=== PATIENT | female | born 1960 | race Caucasian/White ===

== ENCOUNTER → 2020-06-18 14:07 | Outpatient (REF) | payer OTHER, SELFPAY ==
--- NOTE | 2020-06-18 14:13 | CA_ITS ---
Transthoracic Echocardiogram Patient (Last, First, Middle): Uyen Art, Gender: Female Date of : 1960 Age: 59 Procedure Date: 06/18/2020 Procedure Type: Transthoracic Echocardiogram Location: OP Height: 160.02 cm Weight: 52.16 kg BSA: 1.53 m2 Heart Rate: bpm BP: 127 / 85 mmHg Signal Intelligence Analyst: RONA Referring MD: Tatyana Christie TOLL GATE TENDER-Paola Symptoms: R03.0 Elevated blood pressure without diagnosis of hypertension, 134.1 MVP Study Quality: Good ECG Rhythm: Sinus Conclusions: - The left ventricular systolic function is normal. The visually estimated ejection fraction is between 55-60%. - The mitral valve appears myxomatous. There is moderate anterior mitral leaflet prolapse. There is mild mitral valve regurgitation. Findings Left Ventricle Normal left ventricular cavity size. There is mildly increased left ventricular wall thickness. The left ventricular systolic function is normal. The visually estimated ejection fraction is between 55-60%. There is no evidence of regional wall motion abnormalities. Diastolic function is normal for age. Right Ventricle Normal right ventricular cavity size and systolic function. Atria The left atrium is normal in size. The right atrium is normal in size. Aortic Valve There is a normal trileaflet aortic valve. There is no aortic valve stenosis. There is trace (trivial) aortic valve regurgitation. Mitral Valve The mitral valve appears myxomatous. There is moderate anterior mitral leaflet prolapse. There is mild mitral valve regurgitation. There is no mitral valve stenosis. Pulmonic Valve The pulmonic valve was not well visualized. Tricuspid Valve Normal tricuspid valve structure. There is trace tricuspid valve regurgitation. The pulmonary artery systolic pressure is normal. Great Vessels The aortic annulus, sinuses of valsalva, and asc aorta are normal in size. Venous The inferior vena cava is normal in size and collapses greater than 50% with inspiration. Pericardium/Pleural There is no evidence of pericardial effusion. Prior Study Comparison No significant change compared to prior study dated: 07/12/2018. Measurements 2D Linear Measurements IVSd: 1.16 0.6-0.9/0.6-1.0 cm LVIDd: 4.30 3.9-5.3/4.2-5.9 cm LVIDd Index: 2.81 2.4-3.2/2.2-3.1 cm/m2 LVIDs: 2.24 2.0-3.6 cm LVPWd: 0.94 0.7-1.1 cm Ao Root: 3.20 2.1-3.5 cm LA Diam: 2.30 2.7-3.8/3.0-4.0 cm LAIDs Index: 1.50 1.5-2.3 cm/m2 LV Mass: 189.56 67-162/88-224 g LV Mass Index: 123.89 43-95/49-115 g/m2 LVOT Diam: 2.00 3.0+(-)1.3 cm 2D Systolic Function EF 4C: 75.80 >55% Mitral Valve MV Pk E: 0.57 MV PK A: 0.58 MV Decel Time: 269.00 E/A: 1.00 E'Lateral: 5.22 E'Medial: 6.96 E/E' Med: 8.20 E/E' Lat: 10.90 PHT: 79.00 MVA PHT: 2.78 Decel [place]: 2.11 Aortic Valve AoV Pk Kory: 1.28 AoV Pk Grad: 7.00 LVOT LVOT Pk Kory: 0.90 LVOT Mn Kory: 0.58 LVOT VTI: 0.16 LVOT Pk Grad: 3.00 LVOT Mn Grad: 2.00 LVOT Diam: 2.00 LVOT Area: 3.14 Diastolic Function MV Pk E: 0.57 MV Pk A: 0.58 E/A: 1.00 E'Medial: 6.96 E/E' Med: 8.20 E' Laterial: 5.22 E/E' Lat: 10.90 Tricuspid Valve TR Pk Kory: 1.95 TR Pk Grad: 15.00 RA Press: 3.00 RVSP: 18.00 Great Vessels Aorta Ao Root-2D: 3.20 2.0-3.7 cm Ao Asc: 3.30 2.1-3.4 cm Updated in Other Vendor System with Status of Final Jayson Hicks MD electronically signed on 06/21/2020 9:21:55 AM with status of Final
== END ==
LOC: HO.CARD 14:07
PROVIDERS: PCP Internal Medicine; Visit Provider Nurse Practitioner Family
DX: R03.0 Elevated blood-pressure reading, without diagnosis of hypertension (principal); E05.90 Thyrotoxicosis, unspecified without thyrotoxic crisis or storm; I34.1 Nonrheumatic mitral (valve) prolapse
CPT/HCPCS: 93306

== ENCOUNTER → 2020-06-24 11:25 | Outpatient (BNVA) | payer OTHER, SELFPAY | PROVIDERS: PCP Internal Medicine; Referring Provider Internal Medicine; Visit Provider Nurse Practitioner Family | DX: I10 Essential (primary) hypertension (principal); I34.1 Nonrheumatic mitral (valve) prolapse; R00.2 Palpitations; Z79.899 Other long term (current) drug therapy | CPT/HCPCS: 99214 ==

== ENCOUNTER → 2021-01-12 12:56 | Outpatient (BNVA) | payer OTHER, SELFPAY | PROVIDERS: PCP Internal Medicine; Referring Provider Internal Medicine; Visit Provider Internal Medicine Cardiovascular Disease | DX: I34.1 Nonrheumatic mitral (valve) prolapse (principal); I47.1 Supraventricular tachycardia; I10 Essential (primary) hypertension; Z79.899 Other long term (current) drug therapy | CPT/HCPCS: 99212 ==

== ENCOUNTER → 2023-01-05 13:32 | Outpatient (BNVA) | payer OTHER, SELFPAY | PROVIDERS: PCP Internal Medicine; Referring Provider Internal Medicine; Visit Provider Internal Medicine Cardiovascular Disease | DX: I34.1 Nonrheumatic mitral (valve) prolapse (principal); I47.1 Supraventricular tachycardia; I10 Essential (primary) hypertension | CPT/HCPCS: 93005; 99212 ==

== ENCOUNTER 2025-01-10 13:21 | Outpatient (REF) | payer OTHER, SELFPAY ==
--- OUTSIDE RECORDS SUMMARY | 2025-01-10 14:48 | XMS_ITS | Encounter Summary ---
Author Organization [facility] Address [address] [place] [phone] Care Team Providers Care Site Physician Name Role Phone Nubia Flores MD Primary Care Provider Reason for Visit * Reason Onset Date Comments APPOINTMENT 01/09/2025 Encounter Details Date Type Department Care Team (Late st Contact Info) Description 01/09/2025 Telephone Gastroenterology - [address] [place] [phone] Darien Jacobsen MD [address] [facility] [address] [address] APPOINTMENT Social History Tobacco Use Types Packs/Day [...] - [address] [place] [phone] Bridgett Traore MD [address] [place] [address] [place] [address] [place] [address] documented as of this encounter Visit Diagnoses Not on filedocumented in this encounter Care Teams Site Physician Relationship Specialty Start Date End Date Nubia Flores MD 75 [facility] 1 [place] [address] PCP - General Internal Medicine 01/09/25 documented as of this encounter
--- OUTSIDE RECORDS SUMMARY | 2025-01-10 14:48 | XMS_ITS | Clinical Summary ---
Author Organization [facility] 299 [facility] Address [address] [place] [address] Phone Care Team Providers Care Avionics Systems Repairer Name Role Phone Nubia Flores MD Primary Care Provider Encounters Date Type Department Care Team Description 01/09/2025 Telephone Gastroenterology - [address] [phone] Darien Jacobsen MD APPOINTMENT from Last 3 Months Surgical History Surgery Date Site/Laterality Comments WISDOM TOOTH EXTRACTION PROCEDURE: HISTORICAL WISDOM TEETH EXTRACTION Family History Medical History Relation Name Comments Hypertension Mother Thyroid disease Mother Relation Name Status Comments Father Alive Maternal Grandfather asthma, [place] Maternal Grandmother Mother Alive Paternal Grandfather Paternal Grandmother [place] Sister 1 Alive Sister 2 Alive Sister [...] 12:40 PM EDT Consult Gastroenterology - [address] [phone] Bridgett Traore MD [address] [place] [address] [phone] Health Maintenance Due Date Last Done Comments [...] patient's age to complete this topic Insurance [facility] PUBLIC PLANS Care Teams Avionics Systems Repairer Relationship Specialty Start Date End Date Nubia Flores MD 75 [facility] 1 [place] [address] PCP - General Internal Medicine 01/09/25
[2025-01-10 14:53] LABS: MANUAL DIFF FLAG NO
[2025-01-10 15:18] LABS: Basophils Percent Auto 0.5 % (0-2); Eosinophils Absolute Auto 0.1 X10*3/uL (0.0-0.4); Eosinophils Percent Auto 2.9 % (0-4); Hemoglobin 11.7 g/dl (12.0-16.0); Imm Gran Abs Auto 0.01 X10*3/uL (0.00-0.03); Imm Gran Pct Auto 0.3 % (0.0-0.4); Lymphocytes Absolute Auto 1.1 X10*3/uL (1.2-4.9); Mean Corpuscular HGB Conc 33.4 g/dl (31.0-35.0); Mean Corpuscular Hemoglobin 32.9 pg (27.0-33.0); Mean Corpuscular Volume 98.3 fL (80.0-98.0); Mean Platelet Volume 9.1 fL (9.4-12.3); Monocytes Absolute Auto 0.3 X10*3/uL (0.1-1.2); Monocytes Percent Auto 7.3 % (2-11); Neutrophils Absolute Auto 2.3 x10*3/uL (2.0-8.3); Platelet Count 132 X10*3/uL (160-400); Red Blood Count 3.56 X10*6/uL (4.20-5.50); Red Cell Distribution Width 12.5 % (11.0-16.0); White Blood Count 3.8 X10*3/uL (4.8-10.8)
[2025-01-10 15:40] LABS: Alanine Aminotransferase 12 U/L (0-31); Albumin Level 4.1 g/dL (3.5-5.0); Alkaline Phosphatase 91 U/L (39-117); Anion Gap 11 (12-20); Aspartate Amino Transferase 23 U/L (5-31); Bilirubin Total 0.5 mg/dL (0.0-1.0); Blood Urea Nitrogen 16 mg/dL (9-16); Calcium 9.4 mg/dL (8.4-10.2); Carbon Dioxide 26 mmol/L (22-29); Chloride 108 mmol/L (96-108); Cholesterol 197 mg/dL (<200); Estimated Glomerular Filt Rate > 60; Glucose Random 93 mg/dL (60-115); HDL Cholesterol 63 mg/dL (>40); LDL Cholesterol Calculated 121 mg/dL (<100); Potassium 4.3 mmol/L (3.3-5.1); Sodium 141 mmol/L (135-145); Total Protein 7.5 g/dL (6.5-8.0); Triglycerides 68 mg/dL (<150)
[2025-01-10 15:53] LABS: TSH reflex Free T4 1.21 uIU/mL (0.32-4.0)
== END 2025-01-10 13:22 | disposition home or self-care (01) ==
LOC: HO.LAB 13:21
PROVIDERS: PCP Internal Medicine; Visit Provider Nurse Practitioner Family
DX: I10 Essential (primary) hypertension (principal); R10.13 Epigastric pain; I44.0 Atrioventricular block, first degree; I47.10 Supraventricular tachycardia, unspecified; I34.1 Nonrheumatic mitral (valve) prolapse
CPT/HCPCS: 36415; 80053; 80061; 84443; 85025; 93005; 99212

== ENCOUNTER 2025-01-10 13:21 | Outpatient (AMB) | payer OTHER, SELFPAY ==
[2025-01-10 13:25] VITALS: BP 138/82; PULSE 70; BMI 20.1
--- NOTE | 2025-01-10 13:25 | MHC.OFFVIS ---
Vital Signs 01/10/25 13:25 Height 5 ft 3 in Weight 113 lb 5.082 oz BMI 20.1 BP 138/82 Blood Pressure Location Lt brachial Position Sitting Pulse 70 Pulse Source Monitor Intake Visit Reasons: overdue f/u with ekg Atmospheric Chemist Required: No Allergies adhesive [ADHESIVE] Allergy (Unknown, Unverified 01/10/25 13:28) RASH Medication List - Last Reconciled 01/10/25 by Tatyana Christie, CHRISTINA-C lisinopril 10 mg PO DAILY HPI HPI overdue f/u with ekg: Details: Uyen is a 64-year-old female with past medical history of hypertension, SVT, mitral valve prolapse who presents for follow-up. Her last prior visit to our office was 01/05/2023. Today she reports that she has been getting a periodic pulsation in her ear. She believes this may be cardiac or blood pressure related. She also notices a sound in her ear when she bends forward. She describes discomfort in her epigastric region which is nontender to palpation, which can occur randomly. No chest discomfort brought on by exertional activities. No shortness of breath, PND, orthopnea or edema. No lightheadedness, presyncope, syncope, falls. She will notice intermittent heart palpitations, no sustained rapid rates. Physically active. Compliant with meds. PFS Medical History Palpitations SVT (supraventricular tachycardia) Hyperthyroidism First degree atrioventricular block Mitral valve prolapse Hypertension Surgical History Hx of wisdom tooth extraction Family History Father No problems noted. Mother CVD (cardiovascular disease) Aortic valvar stenosis Review of Systems Const All systems reviewed & are unremarkable except as noted in HPI and below ENT Details: pulsation right ear has occurred, swish sound right ear when she bend forward Denies dizziness Card Denies chest pain, Denies chest pain at rest, Denies chest pain with activity, Denies rapid heart rate, Denies pedal edema, Denies edema, Denies leg edema, Denies lightheadedness, Denies palpitations, Denies dyspnea, Denies dyspnea on exertion and Denies orthopnea Resp Denies cough, Denies dyspnea and Denies dyspnea on exertion GI Details: epigastric region discomfort Denies hematochezia and Denies change in stool character Musc Denies abnormal gait, Denies limited range of motion, Denies muscle cramps, Denies muscle weakness, Denies numbness, Denies radiating pain into limb, Denies stiffness and Denies tingling Neuro Denies abnormal gait, Denies dizziness, Denies numbness and Denies tingling Endo Denies palpitations Physical Exam Vital Signs: Last Vital Signs Pulse 70 01/10/25 13:25 BP 138/82 01/10/25 13:25 BMI result Body Mass Index 20.1 Const General: cooperative, healthy appearing, comfortable and no acute distress Orientation/consciousness: patient oriented x3 Neck Neck: Yes normal visual inspection and Yes no JVD Carotids: normal carotid upstroke Resp Effort & Inspection: normal respiratory effort Auscultation: clear to auscultation bilaterally, no rales, no rhonchi and no wheezes Cardio Rate: regular rate Rhythm: regular rhythm Heart sounds: S1 normal heart sound present, S2 normal heart sound present, Murmur heart sound present (Systolic, mitral region) and no rubs Neuro General: patient oriented x3 Extrem General: Yes normal to inspection and No no pedal edema Psych Appearance: grossly normal Mental Status: mental status grossly normal Speech and movement: Normal speech and movement present Office Procedures EKG Details: Today, read by me, sinus rhythm with 1st degree AVB, cant exclude prior anterior infarct ( likely related to lead placement), rate 70, QTc 427ms [id number], Complete Assessment & Plan Assessment & Plan (1) Mitral valve prolapse: Code(s): I34.1 - Nonrheumatic mitral (valve) prolapse Category: Medical Plan: History of mitral valve prolapse. Last echocardiogram done 06/18/2020 shows EF 55-60%, mitral valve myxomatous, moderate anterior leaflet prolapse, mild mitral regurgitation. Murmur noted on examination. No clinical signs of heart failure. Will update echocardiogram. (2) SVT (supraventricular tachycardia): Code(s): I47.1 - Supraventricular tachycardia Category: Medical Plan: History of SVT without recent episodes. She is not on any rate slowing agents. She does report brief occasional palpitations. Vagal maneuvers reviewed. Instructed to avoid caffeinated beverages. Will update labs including CMP, TSH and CBC. (3) First degree atrioventricular block: Code(s): I44.0 - Atrioventricular block, first degree Category: Medical Plan: Noted on EKG, chronic finding. (4) Hypertension: Code(s): I10 - Essential (primary) hypertension Category: Medical Plan: Blood pressure goal less than 130/80. Blood pressure today 138/82, mild elevation. Reviewed low-salt diet. Continue lisinopril. Updating echo. (5) Epigastric discomfort: Code(s): R10.13 - Epigastric pain Category: Medical Plan: Report of epigastric type discomfort. Her description does not seem cardiac in nature. She tells me she does have upcoming appointment with GI. Plan Time spent on chart review, documentation, interview and assessment Orders: Orders Complete Blood Count Auto Diff 01/10/25 I10 - Essential (primary) hypertension Lipid Panel 01/10/25 I10 - Essential (primary) hypertension Comprehensive Met. Panel 01/10/25 I10 - Essential (primary) hypertension TSH reflex Free T4 01/10/25 I10 - Essential (primary) hypertension CA echo transthoracic complete 01/10/25 I34.1 - Nonrheumatic mitral (valve) prolapse, I44.0 - Atrioventricular block, first degree Coding Level of Care Code Est Pt Level 4 (54605) Complex EM visit Add On G2211 Diagnoses Mitral valve prolapse I34.1 SVT (supraventricular tachycardia) I47.1 First degree atrioventricular block I44.0 Hypertension I10 Epigastric discomfort R10.13 CPT Codes EKG - CPT: [id number], Complete ([id number]) Time Spent (min) 36
--- OUTSIDE RECORDS SUMMARY | 2025-01-10 13:39 | XMS_ITS | Encounter Summary ---
Author Organization [facility] Address [address] [place] [phone] Care Team Providers Care Sales Representative Aircraft Name Role Phone Nubia Flores MD Primary Care Provider Reason for Visit * Reason Onset Date Comments APPOINTMENT 01/09/2025 Encounter Details Date Type Department Care Team (Late st Contact Info) Description 01/09/2025 Telephone Gastroenterology - [address] [place] [phone] Darien Jacobsen MD [address] [facility] [address] [address] APPOINTMENT Social History Tobacco Use Types Packs/Day Years Used Date Smoking Tobacco: Never Alcohol Use Standard Drinks/Week Comments Yes 2.5 (1 standard drink = 0.6 oz p ure alcohol) Comments Unknown Sex and Gender Information Value Date Recorded Sex Assigned at Not on file Legal Sex Female 8:31 PM EST Gender Identity Not on file Sexual Orientation Not on file documented as of this encounter Progress Notes * Liv Ann - 01/09/2025 2:10 PM EDT REC'D RECORDS FROM DR. FLORES'S OFFICE FOR CONSULTATION FOR RECURRENT GERD. LEFT MESSAGE FOR PT TO CALL OFFICE. RECORDS SCANNED INTO CHART. PLACED IN CALLED ACCORDION documented in this encounter Plan of Treatment Upcoming Encounters Date Type Department Care Team (Late st Contact Info) Description 01/20/2025 12:40 PM EDT Consult Gastroenterology - [address] [place] [phone] Bridgett Traore MD [address] [place] [address] [place] [address] [place] [address] documented as of this encounter Visit Diagnoses Not on filedocumented in this encounter Care Teams Sales Representative Aircraft Relationship Specialty Start Date End Date Nubia Flores MD [address] [facility] 1 [place] [address] PCP - General Internal Medicine 01/09/25 documented as of this encounter
--- OUTSIDE RECORDS SUMMARY | 2025-01-10 13:39 | XMS_ITS | Clinical Summary ---
Author Organization [facility] 299 [facility] Address [address] [place] [address] Phone Care Team Providers Care Electric Razor Assembler Name Role Phone Nubia Flores MD Primary Care Provider Encounters Date Type Department Care Team Description 01/09/2025 Telephone Gastroenterology - [address] [phone] Darien Jacobsen MD APPOINTMENT from Last 3 Months Surgical History Surgery Date Site/Laterality Comments WISDOM TOOTH EXTRACTION PROCEDURE: HISTORICAL WISDOM TEETH EXTRACTION Family History Medical History Relation Name Comments Hypertension Mother Thyroid disease Mother Relation Name Status Comments Father Alive Maternal Grandfather asthma, [place] Maternal Grandmother Mother Alive Paternal Grandfather Paternal Grandmother [place] Sister 1 Alive Sister 2 Alive Sister 3 Alive Sister 4 Alive Social History Tobacco Use Types Packs/Day Years Used Date Smoking Tobacco: Never Alcohol Use Standard Drinks/Week Comments Yes 2.5 (1 standard drink = 0.6 oz p ure alcohol) Comments Unknown Sex and Gender Information Value Date Recorded Sex Assigned at Not on file Legal Sex Female 8:31 PM EST Gender Identity Not on file Sexual Orientation Not on file Obstetrics History Plan of Treatment Upcoming Encounters Date Type Department Care Team (Late st Contact Info) Description 01/20/2025 12:40 PM EDT Consult Gastroenterology - [address] [phone] Bridgett Traore MD [address] [place] [address] [phone] Health Maintenance Due Date Last Done Comments Breast Cancer Screening 1960 DTaP,Tdap,and Td Vaccines (1 - Tdap) 1981 Cervical Cancer Screening: P ap Smear 12/09/1983 Pneumococcal Vaccine: 50+ Ye ars (1 of 1 - PCV) 2012 Zoster Vaccines (1 of 2) 2012 Colorectal Cancer Screening: Colonoscopy 10/06/2023 Depression Screening 10/06/2023 HIV Screening 10/06/2023 Hepatitis C Screening 10/06/2023 Social Influencers of Health Screening 10/06/2023 COVID-19 Vaccine ( - 2023-2 5 season) 2024 Influenza Vaccine (Season Ended) 2025 RSV Immunization Adult Patie nts (1 - 1-dose 75+ series) 2037 HIB Vaccines Aged Out No longer eligi ble based on patient's age to complete this topic HPV Vaccines Aged Out No longer eligi ble based on patient's age to complete this topic Hepatitis A Vaccines Aged Out No long er eligible based on patient's age to complete this topic Hepatitis B Vaccines Aged Out No long er eligible based on patient's age to complete this topic IPV Vaccines Aged Out No longer eligi ble based on patient's age to complete this topic MMR Vaccines Aged Out No longer eligi ble based on patient's age to complete this topic Meningococcal ACWY Vaccine Aged Out N o longer eligible based on patient's age to complete this topic Meningococcal B Vaccine Aged Out No l onger eligible based on patient's age to complete this topic Pneumococcal Vaccine: Pediat rics (0 to 5 Years) and At-Risk Patients (6 to 64 Years) Aged Out No longer eligible b ased on patient's age to complete this topic RSV Immunization Patients Un kristine 20 months Aged Out No longer eligible b ased on patient's age to complete this topic Varicella Vaccines Aged Out No longer eligible based on patient's age to complete this topic Insurance [facility] PUBLIC PLANS Care Teams Electric Razor Assembler Relationship Specialty Start Date End Date Nubia Flores MD [address] [facility] 1 [place] [address] PCP - General Internal Medicine 01/09/25
== END 2025-01-10 14:01 | disposition home or self-care (01) ==
PROVIDERS: PCP Internal Medicine; Visit Provider Nurse Practitioner Family
DX: I34.1 Nonrheumatic mitral (valve) prolapse (principal); I47.10 Supraventricular tachycardia, unspecified; I44.0 Atrioventricular block, first degree; I10 Essential (primary) hypertension; R10.13 Epigastric pain
CPT/HCPCS: 99214; G2211

== ENCOUNTER → 2025-02-12 13:50 | Outpatient (REF) | payer OTHER, SELFPAY ==
--- NOTE | 2025-02-12 13:53 | CA_ITS ---
Transthoracic Echocardiogram Patient (Last, First, Middle): Uyen Art, Gender: Female Date of : 1960 Age: 64 Procedure Date: 02/12/2025 Procedure Type: Transthoracic Echocardiogram Location: OP Height: 160.02 cm Weight: 51.26 kg BSA: 1.52 m2 Heart Rate: bpm BP: 138 / 82 mmHg Independent Driver: GENARO Referring MD: Tatyana Christie LEAD PERFORMANCE SUPPORT ANALYST-Paola Symptoms: I34.1 - Nonrheumatic mitral (valve) prolapse Study Quality: Adequate Conclusions: - The left ventricular systolic function is normal. The calculated ejection fraction is 62% by biplane method. - The mitral valve appears myxomatous. There is moderate anterior mitral leaflet prolapse and mild posterior mitral leaflet prolapse. There is mild mitral valve regurgitation. The mitral regurgitation jet is directed posteriorly. Findings Left Ventricle Normal left ventricular cavity size. The left ventricular systolic function is normal. The calculated ejection fraction is 62% by biplane method. There is no evidence of regional wall motion abnormalities. Diastolic function is normal for age. There is mild septal asymmetric hypertrophy. Right Ventricle Normal right ventricular cavity size and systolic function. Atria Mild biatrial enlargement. Aortic Valve There is a normal trileaflet aortic valve. There is no aortic valve stenosis. There is no aortic valve regurgitation. Mitral Valve The mitral valve appears myxomatous. There is moderate anterior mitral leaflet prolapse and mild posterior mitral leaflet prolapse. There is mild mitral valve regurgitation. The mitral regurgitation jet is directed posteriorly. There is no mitral valve stenosis. Pulmonic Valve The pulmonic valve is likely normal. Tricuspid Valve There is trace tricuspid valve regurgitation. There is no evidence of pulmonary hypertension. Great Vessels The asc aorta is normal in size. Venous The inferior vena cava is normal in size and collapses greater than 50% with inspiration. Pericardium/Pleural There is no evidence of pericardial effusion. Prior Study Comparison No significant change compared to prior study dated: 06/18/2020. Measurements 2D Linear Measurements IVSd: 1.05 0.6-0.9/0.6-1.0 cm LVIDd: 4.50 3.9-5.3/4.2-5.9 cm LVIDd Index: 2.96 2.4-3.2/2.2-3.1 cm/m2 LVIDs: 2.82 2.0-3.6 cm LVPWd: 0.87 0.7-1.1 cm LA Diam: 3.30 2.7-3.8/3.0-4.0 cm LAIDs Index: 2.17 1.5-2.3 cm/m2 LV Mass: 180.04 67-162/88-224 g LV Mass Index: 118.45 43-95/49-115 g/m2 LVOT Diam: 2.00 3.0+(-)1.3 cm 2D Systolic Function EF 4C: 61.90 >55% EF 2C: 64.20 >55% EF BiP: 62.30 >55% Mitral Valve MV Pk Kory: 5.60 MV Pk Grad: 125.00 MV Pk E: 0.93 MV PK A: 0.59 MV Decel Time: 312.00 E/A: 1.60 E'Lateral: 7.62 E'Medial: 5.87 E/E' Med: 15.90 E/E' Lat: 12.30 PHT: 91.00 MVA PHT: 2.42 Decel [place]: 2.99 MR Vol - PW Dopp: 6.12 MR VTI: 1.02 MR ERO: 6.00 MR Alias Kory: 0.35 MR RAD: 0.40 Aortic Valve AoV Pk Kory: 1.23 AoV Mn Kory: 0.77 AoV VTI: 0.34 AoV Pk Grad: 6.00 Aov Mn Grad: 3.00 [place]WN Cont.VTI: 2.10 LVOT LVOT Pk Kory: 0.91 LVOT Mn Kory: 0.61 LVOT VTI: 0.22 LVOT Pk Grad: 3.00 LVOT Mn Grad: 2.00 LVOT Diam: 2.00 LVOT Area: 3.14 Diastolic Function MV Pk E: 0.93 MV Pk A: 0.59 E/A: 1.60 E'Medial: 5.87 E/E' Med: 15.90 E' Laterial: 7.62 E/E' Lat: 12.30 Right Ventricle TAPSE (mm): 29.40 Tricuspid Valve TR Pk Kory: 2.17 TR Pk Grad: 19.00 RA Press: 3.00 RVSP: 22.00 Great Vessels Aorta Sinus of Valsalva: 3.66 2.0-3.[address] [place]: 2.65 1.7-3.4 cm Ao Asc: 3.30 2.1-3.4 cm Updated in Other Vendor System with Status of Final Jayson Hicks MD electronically signed on 02/13/2025 4:02:56 PM with status of Final
--- OUTSIDE RECORDS SUMMARY | 2025-02-12 13:58 | XMS_ITS | Encounter Summary ---
Author Organization [facility] Address [address] [place] [phone] Care Team Providers Care Wire Cutter Name Role Phone Nubia Flores MD Primary Care Provider [phone] Reason for Visit * Reason Onset Date Comments APPOINTMENT 01/09/2025 Encounter Details Date Type Department Care Team (Late st Contact Info) Description 01/09/2025 Telephone Gastroenterology - [address] [facility] [address] [place] [phone] Darien Jacobsen MD [address] [place] [address] APPOINTMENT Social History Tobacco Use Types Packs/Day Years Used Date Smoking Tobacco: Never Alcohol Use Standard Drinks/Week Comments Yes 2.5 (1 standard drink = 0.6 oz p ure alcohol) Interpersonal Safety Answer Date Record ed Physical Abuse 01/27/2025 Verbal Abuse 01/27/2025 Comments Unknown Sex and Gender Information Value Date Recorded Sex Assigned at Female 01/22/2025 10:00 AM EDT Legal Sex Female 8:31 PM EST Gender Identity Female 01/22/2025 10:00 AM EDT Sexual Orientation Not on file documented as of this encounter Progress Notes * Liv Ann - 01/09/2025 2:10 PM EDT REC'D RECORDS FROM DR. FLORES'S OFFICE FOR CONSULTATION FOR RECURRENT GERD. LEFT MESSAGE FOR PT TO CALL OFFICE. RECORDS SCANNED INTO CHART. PLACED IN CALLED ACCORDION documented in this encounter Plan of Treatment Not on file documented as of this encounter Visit Diagnoses Not on filedocumented in this encounter Care Teams Wire Cutter Relationship Specialty Start Date End Date Nubia Flores MD 75 [facility] 1 [place] [phone] PCP - General Internal Medicine 01/09/25 documented as of this encounter
== END ==
LOC: HO.CARD 13:50
PROVIDERS: PCP Internal Medicine; Visit Provider Nurse Practitioner Family
DX: I34.1 Nonrheumatic mitral (valve) prolapse (principal); I44.0 Atrioventricular block, first degree
CPT/HCPCS: 93306

== ENCOUNTER → 2025-02-12 13:53 | Outpatient (BNV) | payer OTHER, SELFPAY | PROVIDERS: PCP Internal Medicine; Visit Provider Internal Medicine | DX: I51.7 Cardiomegaly (principal); I34.1 Nonrheumatic mitral (valve) prolapse | CPT/HCPCS: 93306 ==